=== PATIENT | female | born 1975 | race American Indian/Alaskan Native ===

== ENCOUNTER 2021-01-20 11:00 | Emergency (ER) | payer SELFPAY ==
[2021-01-20 11:58] VITALS: BP 124/93
--- NOTE | 2021-01-20 12:00 | Emergency Department Report ---
Chief Complaint: High BP Stated Complaint: HIGH BLOOD PRESSURE Time Seen by Provider: 01/20/21 11:46 - HPI History of Present Illness: Patient is a 45-year-old female presents emergency room with complaints of concerns for elevated blood pressure. 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 He states that she has been very overwhelmed and feeling anxious and had a lot going on. She states that over the last few days she has had a mild headache. She states that she checked her blood pressure and reports that it was 160/100. She states that hypertension runs in her family but she has never been diagnosed with hypertension in the past. She states that she has not seen a primary care doctor in a few years. She does not report any chest pain, shortness of breath, vision changes, numbness, weakness, speech disturbance, gait disturbance, leg swelling. No past medical history. No allergies to medicines. Vitals are stable Initial blood pressure is 147/96 Repeat blood pressure is 124/93 On exam: Non toxic appearing, no acute distress atraumatic, normocephalic normal appearance of the eyes, EOMI, no periorbital edema or ecchymosis moist mucus membranes regular heart rate and rhythm, no gallops, no rubs, no murmurs breath sounds are clear bilaterally, no w/r/r, no respiratory distress, no accessory muscle use, no stridor A&O x4, no focal neuro deficit skin is warm, dry, intact Patient is presenting for concerns over her elevated blood pressure, she states that she was having a mild headache but she states that she has been stressed and feeling anxious and states that she currently works in a hospital Vitals are stable Stressed the importance of primary care follow-up Discussed return precautions Medical screen examination performed there is no dental life or limb at this time - Exam Vital Signs: Vital Signs 01/20/21 01/20/21 11:07 11:57 Temperature 97.8 F Pulse Rate 60 Respiratory 18 Rate Blood Pressure 147/96 Blood Pressure 124/93 [Left] O2 Sat by Pulse 100 Oximetry MSE screening note: Focused history and physical exam performed. ED Disposition for MSE Clinical Impression: Encounter for medical screening examination Disposition: - TO HOME OR SELFCARE Is pt being admited?: No Does the pt Need Aspirin: No Condition: Stable Additional Instructions: Please follow-up with a primary care doctor. Increase your water intake. Eat a low-sodium diet. Incorporate 30 to 60 minutes of daily exercise. Please find ways to reduce your stress and meditate. Return to emergency room for any new or worsening symptoms. Referrals: JOSEE CARTER MD [Staff Physician] - 3-5 Days DINORAH GUZMAN MD [Staff Physician] - 3-5 Days Forms: Work/School Release Form(ED) Time of Disposition: 11:59 Print Language: THAI
== END 2021-01-20 12:00 | disposition home or self-care (01) ==
LOC: ED 11:00
DX: Z13.9 Encounter for screening, unspecified (principal); I10 Essential (primary) hypertension
CPT/HCPCS: 99281